=== PATIENT | female | born 1965 | race African-American/Black ===

== ENCOUNTER 2019-06-07 07:12 | Observation (INO) ==
[2019-06-07] MEDS ORDERED: ASPIRIN 325 MG TABLET PO STA (07:37)
[2019-06-07] MEDS ORDERED: KETOROLAC 30 MG/1 ML VIAL IV STA (07:38)
[2019-06-07 08:01] LABS: Basophils % 0.2 % (0.0-0.8); Eosinophils # 0.1 10*3/uL (0.0-0.87); Eosinophils % 1.3 % (0.00-10.9); Hematocrit 42.3 VOL% (35.7-47.0); Hemoglobin 13.2 GM/DL (12.0-16.0); Immature Granulocytes % 0.2 %; Immature Granulocytes Absolute 0.02 #; Lymphocytes # 2.9 10*3/uL (1.4-4.0); Lymphocytes % 34.4 % (21.3-54.2); Mean Corpuscular HGB Conc 31.2 GM/DL (32-36); Mean Corpuscular Volume 82.5 FL (87-102); Mean Platelet Volume 9.3 FL (9.6-12.0); Neutrophils % 57.9 % (38.7-73.9); Platelet Count 326 T/CUMM (130-400); Red Blood Count 5.13 MC/CUMM (3.8-5.5); Red Cell Distribution Width 14.5 % (9.3-17.3); White Blood Count 8.4 T/CUMM (4-12)
[2019-06-07 08:02] LABS: Alanine Aminotransferase 18 U/L (13-56); Albumin 3.5 G/DL (3.4-5.0); Alkaline Phosphatase 121 U/L (45-117); Aspartate Amino Transferase 10 U/L (0-37); Bilirubin,Total < 0.39 MG/DL (0.2-1.0); Blood Urea Nitrogen 9 MG/DL (7-18); Calcium 9.5 MG/DL (8.5-10.1); Estimated Glom Filtration Rate 146 ML/MIN; Glucose 272 MG/DL (74-106); Osmolality,Calculated 274.4 MOS/KG (273-304)
[2019-06-07 08:51] LABS: Barbiturates Screen,Urine Negative (Negative); Benzodiazepines Screen,Urine Negative (Negative); Cannabinoid Screen,Urine Negative (Negative); Opiate Screen,Urine Negative (Negative); Phencyclidine Screen,Urine Negative (Negative)
[2019-06-07] MEDS ORDERED: GLUCAGON 1 MG VIAL IM PRN ×2 (10:18)
[2019-06-07] MEDS ORDERED: DEXTROSE 50% 25 GM/50 ML VIAL IV PRN ×2 (10:18)
[2019-06-07 10:39] VITALS: BP 106/64
[2019-06-07 11:10] LABS: Risk Ratio 3.62; VLDL CHOLESTEROL 16.8 MG/DL
[2019-06-07] MEDS ORDERED: INSULIN REGULAR 100 UNIT/ML SUBCUT SCH (11:30)
[2019-06-07 11:38] LABS: Troponin I < 0.015 NG/ML (0.00-0.045)
[2019-06-07 14:21] LABS: Troponin I < 0.015 NG/ML (0.00-0.045)
[2019-06-07] MEDS ORDERED: GABAPENTIN 100 MG CAPSULE PO ONE (14:53)
[2019-06-07] MEDS ORDERED: KETOROLAC 30 MG/1 ML VIAL IV ONE (14:53)
[2019-06-07] MEDS ORDERED: ATORVASTATIN 20 MG TABLET PO SCH (21:00)
[2019-06-08] MEDS ORDERED: ASPIRIN EC 81 MG TABLET PO SCH (09:00)
== END 2019-06-07 16:15 | disposition home or self-care (01) ==
LOC: N.ED 07:12 → N.EDINP 07:12 → N.2W 11:23
PROVIDERS: ADMIT Family Medicine; ATTEND Family Medicine

== ENCOUNTER 2019-06-30 01:10 | Inpatient (IN) ==
[2019-06-30] MEDS ORDERED: ALUM/MAG/SIMETH/LIDO VISC 1:1 30 ML BOTTLE PO STA (02:19)
[2019-06-30] MEDS ORDERED: ONDANSETRON 4 MG/2 ML VIAL IV STA (02:19)
[2019-06-30] MEDS ORDERED: SODIUM CHLORIDE 0.9% 500 ML IV STA (02:19)
[2019-06-30] MEDS ORDERED: PANTOPRAZOLE 40 MG VIAL IV STA (02:19)
[2019-06-30] MEDS ORDERED: HYDROmorphone 2 MG/1 ML VIAL IV STA (02:19)
[2019-06-30] MEDS ORDERED: KETOROLAC 30 MG/1 ML VIAL IV STA (02:19)
[2019-06-30 02:30] LABS: Basophils # 0.1 10*3/uL (0.0-0.2); Eosinophils # 0.1 10*3/uL (0.0-0.87); Hematocrit 44.3 VOL% (35.7-47.0); Hemoglobin 13.7 GM/DL (12.0-16.0); Immature Granulocytes % 0.8 %; Immature Granulocytes Absolute 0.05 #; Lymphocytes # 2.5 10*3/uL (1.4-4.0); Lymphocytes % 41.1 % (21.3-54.2); Mean Corpuscular HGB Conc 30.9 GM/DL (32-36); Mean Corpuscular Volume 81.7 FL (87-102); Mean Platelet Volume 9.1 FL (9.6-12.0); Monocytes % 14.4 % (1.7-12.7); Neutrophils % 41.7 % (38.7-73.9); Platelet Count 354 T/CUMM (130-400); Red Blood Count 5.42 MC/CUMM (3.8-5.5); Red Cell Distribution Width 14.6 % (9.3-17.3)
[2019-06-30 02:47] LABS: Albumin 3.5 G/DL (3.4-5.0); Bilirubin,Total 0.6 MG/DL (0.2-1.0); Calcium 9.6 MG/DL (8.5-10.1); Total Protein 8.9 G/DL (6.4-8.3)
[2019-06-30 02:54] LABS: Hypochromasia 1+; Lymphocytes 35 % (20-55); Microcytosis 1+; Nucleated Red Blood Cells 1 (0-5); Platelet Estimate Normal; Segmented Neutrophils 53 % (50-85); Total Cells Counted 100
[2019-06-30 02:55] LABS: Polychromasia Slight
[2019-06-30 03:13] LABS: Apearance,Urine CLOUDY (Clear); Bacteria,Urine Few /HPF (Few); Bilirubin,Urine Negative (Negative); Blood, Urine Large mg/dL (Negative); Glucose,Urine (UA) 150 mg/dL (Negative); Ketones,Urine 5 mg/dL (Negative); Mucus,Urine Moderate /LPF (Occasional); Nitrite,Urine Negative (Negative); Protein,Urine 100 MG/DL; RBC,Urine 42 /HPF (0-4); Squamous Epithelial Cell,Urine Occasional /HPF (0-10); Urine Color Amber (Yellow); Urine Specific Gravity 1.021 (1.001-1.035); WBC,Urine 403 /HPF (0-6)
[2019-06-30] MEDS ORDERED: cefTRIAXone 1,000 MG in SODIUM CHLORIDE 0.9% 100 ML IV STA (03:18)
[2019-06-30] MEDS ORDERED: POTASSIUM CHLORIDE 20 MEQ TABLET PO STA (03:18)
[2019-06-30] MEDS ORDERED: PIPERACILLIN/TAZOBACTAM 3,375 MG in SODIUM CHLORIDE 0.9% 100 ML IV STA (03:29)
[2019-06-30] MEDS ORDERED: POTASSIUM BICARB EFFERVESCENT 25 MEQ TABLET PO ONE ×2 (03:37→03:38)
[2019-06-30] MEDS ORDERED: GLUCAGON 1 MG VIAL IM PRN (04:47)
[2019-06-30] MEDS ORDERED: DEXTROSE 50% 25 GM/50 ML VIAL IV PRN (04:47)
[2019-06-30] MEDS ORDERED: HYDROmorphone 2 MG/1 ML VIAL IV PRN ×2 (04:47→15:43)
[2019-06-30] MEDS: INSULIN REGULAR 100 UNIT/ML SUBCUT SCH ×3 (05:44→18:05)
[2019-06-30] MEDS: ONDANSETRON 4 MG/2 ML VIAL IV PRN ×3 (05:49→20:59)
[2019-06-30] MEDS: SODIUM CHLORIDE 0.9% 1,000 ML IV SCH ×2 (05:50→18:29)
[2019-06-30] MEDS ORDERED: ceFAZolin 1,000 MG in SYRINGE 1 EACH IV ONE (07:32)
[2019-06-30] MEDS: GABAPENTIN 100 MG CAPSULE PO SCH ×2 (08:45→20:53)
[2019-06-30] MEDS ORDERED: METFORMIN PO SCH (09:00)
[2019-06-30] MEDS ORDERED: ASPIRIN EC 81 MG TABLET PO SCH (09:00)
[2019-06-30] MEDS ORDERED: ERTUGLIFLOZIN PO SCH (09:00)
[2019-06-30] MEDS: PANTOPRAZOLE 40 MG VIAL IV SCH (09:36)
[2019-06-30] MEDS: PIPERACILLIN/TAZOBACTAM 3,375 MG in SODIUM CHLORIDE 0.9% 100 ML IV SCH ×2 (11:52→20:53)
[2019-06-30] MEDS ORDERED: TISSUE ADHESIVE 1 EACH APPLICATOR TOP ONE (15:11)
[2019-06-30] MEDS ORDERED: LABETALOL 100 MG/20 ML VIAL IV ONE (15:37)
[2019-06-30] MEDS ORDERED: propofoL 200 MG/20 ML VIAL IV ONE (15:37)
[2019-06-30] MEDS ORDERED: GLYCOPYRROLATE 0.4 MG/2 ML VIAL ONE (15:37)
[2019-06-30] MEDS ORDERED: ONDANSETRON 4 MG/2 ML VIAL ONE (15:37)
[2019-06-30] MEDS ORDERED: KETOROLAC 30 MG/1 ML VIAL ONE (15:37)
[2019-06-30] MEDS ORDERED: fentaNYL 100 MCG/2 ML VIAL ONE (15:37)
[2019-06-30] MEDS ORDERED: MIDAZOLAM 2 MG/2 ML VIAL ONE (15:37)
[2019-06-30] MEDS ORDERED: LIDOCAINE 2% 5 ML VIAL ONE (15:37)
[2019-06-30] MEDS ORDERED: SUCCINYLCHOLINE 200 MG/10 ML VIAL ONE (15:38)
[2019-06-30] MEDS ORDERED: SEVOFLURANE 1 UNIT/15 MINUTE INH ONE (15:38)
[2019-06-30] MEDS ORDERED: NEOSTIGMINE 10 MG/10 ML VIAL ONE (15:38)
[2019-06-30] MEDS ORDERED: ROCURONIUM 100 MG/10 ML VIAL IV ONE (15:38)
[2019-06-30] MEDS ORDERED: LACTATED RINGERS 1,000 ML IV ONE (15:38)
[2019-06-30] MEDS ORDERED: ONDANSETRON 4 MG/2 ML VIAL IV PRN (15:43)
[2019-06-30] MEDS: ATORVASTATIN 20 MG TABLET PO SCH (20:53)
[2019-07-01] MEDS: INSULIN REGULAR 100 UNIT/ML SUBCUT SCH ×4 (00:22→18:24)
[2019-07-01] MEDS: ACETAMINOPHEN 325 MG TABLET PO PRN ×2 (02:10→09:14)
[2019-07-01 03:38] LABS: Apearance,Urine CLOUDY (Clear); Bilirubin,Urine Negative (Negative); Blood, Urine Moderate mg/dL (Negative); Glucose,Urine (UA) 150 mg/dL (Negative); Ketones,Urine Negative (Negative); Mucus,Urine Occasional /LPF (Occasional); Nitrite,Urine Negative (Negative); Protein,Urine Negative; RBC,Urine 27 /HPF (0-4); Squamous Epithelial Cell,Urine Occasional /HPF (0-10); Urine Color Amber (Yellow); Urine Specific Gravity 1.021 (1.001-1.035); WBC,Urine 164 /HPF (0-6)
[2019-07-01] MEDS: PIPERACILLIN/TAZOBACTAM 3,375 MG in SODIUM CHLORIDE 0.9% 100 ML IV SCH ×3 (04:22→20:08)
[2019-07-01] MEDS: SODIUM CHLORIDE 0.9% 1,000 ML IV SCH ×3 (05:37→13:08)
[2019-07-01 05:42] LABS: Basophils % 0.4 % (0.0-0.8); Eosinophils % 0.5 % (0.00-10.9); Hemoglobin 11.1 GM/DL (12.0-16.0); Immature Granulocytes % 0.5 %; Immature Granulocytes Absolute 0.04 #; Lymphocytes # 2.8 10*3/uL (1.4-4.0); Lymphocytes % 34.3 % (21.3-54.2); Mean Corpuscular HGB Conc 31.7 GM/DL (32-36); Mean Corpuscular Volume 80.6 FL (87-102); Mean Platelet Volume 9.3 FL (9.6-12.0); Monocytes % 10.9 % (1.7-12.7); Neutrophils % 53.4 % (38.7-73.9); Platelet Count 302 T/CUMM (130-400); Red Blood Count 4.34 MC/CUMM (3.8-5.5); Red Cell Distribution Width 14.8 % (9.3-17.3); White Blood Count 8.2 T/CUMM (4-12)
[2019-07-01 06:06] LABS: Hypochromasia 1+; Microcytosis 1+
[2019-07-01 06:07] LABS: Ovalocytes Slight; Platelet Estimate Normal
[2019-07-01 06:17] LABS: Albumin 2.6 G/DL (3.4-5.0); Bilirubin,Total 0.9 MG/DL (0.2-1.0); Calcium 8.5 MG/DL (8.5-10.1); Osmolality,Calculated 286.1 MOS/KG (273-304); Total Protein 6.7 G/DL (6.4-8.3)
[2019-07-01] MEDS ORDERED: VANCOMYCIN INJ 1,750 MG in SODIUM CHLORIDE 0.9% 500 ML IV ONE (09:00)
[2019-07-01] MEDS: PANTOPRAZOLE 40 MG VIAL IV SCH (09:15)
[2019-07-01] MEDS: GABAPENTIN 100 MG CAPSULE PO SCH ×2 (09:15→20:11)
[2019-07-01] MEDS: ONDANSETRON 4 MG/2 ML VIAL IV PRN (15:08)
[2019-07-01] MEDS: PROMETHAZINE 25 MG/1 ML VIAL IM PRN (19:11)
[2019-07-01] MEDS: VANCOMYCIN INJ 1,250 MG in SODIUM CHLORIDE 0.9% 250 ML IV SCH (20:08)
[2019-07-01] MEDS: ATORVASTATIN 20 MG TABLET PO SCH (20:11)
[2019-07-02] MEDS: PROMETHAZINE 25 MG/1 ML VIAL IM PRN (00:49)
[2019-07-02] MEDS: INSULIN REGULAR 100 UNIT/ML SUBCUT SCH ×4 (00:52→17:00)
[2019-07-02] MEDS: SODIUM CHLORIDE 0.9% 1,000 ML IV SCH ×4 (01:02→13:02)
[2019-07-02] MEDS: PIPERACILLIN/TAZOBACTAM 3,375 MG in SODIUM CHLORIDE 0.9% 100 ML IV SCH ×3 (04:57→20:15)
[2019-07-02 06:23] LABS: Basophils % 0.3 % (0.0-0.8); Eosinophils % 0.2 % (0.00-10.9); Hematocrit 36.4 VOL% (35.7-47.0); Immature Granulocytes % 0.8 %; Immature Granulocytes Absolute 0.09 #; Lymphocytes # 3.1 10*3/uL (1.4-4.0); Lymphocytes % 26.3 % (21.3-54.2); Mean Corpuscular HGB Conc 30.2 GM/DL (32-36); Mean Corpuscular Volume 82.9 FL (87-102); Mean Platelet Volume 9.3 FL (9.6-12.0); Monocytes % 10.9 % (1.7-12.7); Neutrophils % 61.5 % (38.7-73.9); Platelet Count 315 T/CUMM (130-400); Red Blood Count 4.39 MC/CUMM (3.8-5.5); Red Cell Distribution Width 15.1 % (9.3-17.3); White Blood Count 11.9 T/CUMM (4-12)
[2019-07-02 06:44] LABS: Hypochromasia 1+; Platelet Estimate Adequate
[2019-07-02 06:45] LABS: Microcytosis Slight
[2019-07-02 06:50] LABS: Albumin 2.6 G/DL (3.4-5.0); Bilirubin,Total 0.8 MG/DL (0.2-1.0); Calcium 8.5 MG/DL (8.5-10.1); Osmolality,Calculated 283.3 MOS/KG (273-304); Total Protein 6.5 G/DL (6.4-8.3)
[2019-07-02] MEDS: PANTOPRAZOLE 40 MG VIAL IV SCH (09:15)
[2019-07-02] MEDS: GABAPENTIN 100 MG CAPSULE PO SCH ×2 (09:15→20:15)
[2019-07-02] MEDS: ACETAMINOPHEN 325 MG TABLET PO PRN (09:15)
[2019-07-02] MEDS: VANCOMYCIN INJ 1,250 MG in SODIUM CHLORIDE 0.9% 250 ML IV SCH (09:16)
[2019-07-02 14:38] LABS: Hepatitis B Core IgM Quant < 0.05 Index; Hepatitis B Surface Ag Quant < 0.10 Index; Hepatitis B Surface Ag Result Negative (Negative); Hepatitis C Virus Ab Quant 0.05 Index; Hepatitis C Virus Ab Result Negative (Negative)
[2019-07-02] MEDS ORDERED: POTASSIUM CHLORIDE 20 MEQ TABLET PO ONE (14:39)
[2019-07-02] MEDS: LEVOFLOXACIN INJ 500 MG in PREMIX 1 EACH IV SCH (16:59)
[2019-07-02] MEDS: ATORVASTATIN 20 MG TABLET PO SCH (20:15)
[2019-07-03] MEDS: INSULIN REGULAR 100 UNIT/ML SUBCUT SCH ×4 (00:16→18:19)
[2019-07-03] MEDS: ACETAMINOPHEN 325 MG TABLET PO PRN (00:17)
[2019-07-03] MEDS: SODIUM CHLORIDE 0.9% 1,000 ML IV SCH ×3 (06:52→12:00)
[2019-07-03] MEDS: PIPERACILLIN/TAZOBACTAM 3,375 MG in SODIUM CHLORIDE 0.9% 100 ML IV SCH ×3 (06:53→20:35)
[2019-07-03 07:09] LABS: Basophils # 0.1 10*3/uL (0.0-0.2); Basophils % 0.5 % (0.0-0.8); Eosinophils # 0.1 10*3/uL (0.0-0.87); Eosinophils % 0.7 % (0.00-10.9); Hematocrit 34.5 VOL% (35.7-47.0); Hemoglobin 10.8 GM/DL (12.0-16.0); Immature Granulocytes % 0.5 %; Immature Granulocytes Absolute 0.05 #; Lymphocytes # 2.8 10*3/uL (1.4-4.0); Lymphocytes % 27.5 % (21.3-54.2); Mean Corpuscular HGB Conc 31.3 GM/DL (32-36); Mean Corpuscular Volume 81.6 FL (87-102); Mean Platelet Volume 8.7 FL (9.6-12.0); Monocytes % 12.5 % (1.7-12.7); Neutrophils % 58.3 % (38.7-73.9); Platelet Count 281 T/CUMM (130-400); Red Blood Count 4.23 MC/CUMM (3.8-5.5); Red Cell Distribution Width 15.4 % (9.3-17.3)
[2019-07-03 07:43] LABS: Albumin 2.2 G/DL (3.4-5.0); Bilirubin,Total 0.6 MG/DL (0.2-1.0); Calcium 8.8 MG/DL (8.5-10.1); Osmolality,Calculated 287.3 MOS/KG (273-304); Total Protein 7.1 G/DL (6.4-8.3)
[2019-07-03 07:47] LABS: Hypochromasia 1+; Microcytosis 1+; Ovalocytes Slight
[2019-07-03] MEDS: PANTOPRAZOLE 40 MG VIAL IV SCH (08:37)
[2019-07-03] MEDS: GABAPENTIN 100 MG CAPSULE PO SCH ×2 (08:37→20:36)
[2019-07-03] MEDS: ACETAMINOPHEN 325 MG TABLET PO SCH ×3 (11:59→22:42)
[2019-07-03] MEDS ORDERED: ALBUTEROL/IPRATROPIUM 3 ML NEB RESP TX PRN (14:32)
[2019-07-03] MEDS ORDERED: FUROSEMIDE 20 MG/2 ML VIAL IV ONE (14:33)
[2019-07-03] MEDS: LEVOFLOXACIN INJ 500 MG in PREMIX 1 EACH IV SCH (16:02)
[2019-07-03] MEDS: ATORVASTATIN 20 MG TABLET PO SCH (20:35)
[2019-07-03] MEDS: ZINC SULFATE 220 MG CAPSULE PO SCH (20:36)
[2019-07-04] MEDS: INSULIN REGULAR 100 UNIT/ML SUBCUT SCH ×5 (00:54→21:09)
[2019-07-04] MEDS: PIPERACILLIN/TAZOBACTAM 3,375 MG in SODIUM CHLORIDE 0.9% 100 ML IV SCH ×3 (04:50→21:08)
[2019-07-04] MEDS: ACETAMINOPHEN 325 MG TABLET PO SCH ×4 (04:51→23:57)
[2019-07-04 07:54] LABS: Basophils % 0.5 % (0.0-0.8); Eosinophils # 0.1 10*3/uL (0.0-0.87); Eosinophils % 1.1 % (0.00-10.9); Hematocrit 32.3 VOL% (35.7-47.0); Hemoglobin 10.4 GM/DL (12.0-16.0); Immature Granulocytes % 0.5 %; Immature Granulocytes Absolute 0.04 #; Lymphocytes # 2.8 10*3/uL (1.4-4.0); Mean Corpuscular HGB Conc 32.2 GM/DL (32-36); Mean Corpuscular Volume 82.6 FL (87-102); Mean Platelet Volume 9.4 FL (9.6-12.0); Monocytes % 12.5 % (1.7-12.7); Neutrophils % 52.4 % (38.7-73.9); Platelet Count 281 T/CUMM (130-400); Red Blood Count 3.91 MC/CUMM (3.8-5.5); Red Cell Distribution Width 15.3 % (9.3-17.3); White Blood Count 8.4 T/CUMM (4-12)
[2019-07-04 07:56] LABS: Bilirubin,Total 0.4 MG/DL (0.2-1.0); Calcium 8.6 MG/DL (8.5-10.1); Osmolality,Calculated 281.7 MOS/KG (273-304); Total Protein 6.9 G/DL (6.4-8.3)
[2019-07-04 08:22] LABS: Atypical Lymphocytes Few; Band Neutrophils 3 % (0-10); Eosinophils 1 % (0-10); Hypochromasia 1+; Lymphocytes 26 % (20-55); Metamyelocytes 1 %; Microcytosis 1+; Segmented Neutrophils 60 % (50-85); Total Cells Counted 100
[2019-07-04 08:23] LABS: Platelet Estimate Normal
[2019-07-04] MEDS: FUROSEMIDE 40 MG/4 ML VIAL IV SCH (09:16)
[2019-07-04] MEDS: GABAPENTIN 100 MG CAPSULE PO SCH ×2 (09:16→21:09)
[2019-07-04] MEDS: SODIUM CHLORIDE 0.9% 1,000 ML IV SCH ×2 (09:16→09:17)
[2019-07-04] MEDS: PANTOPRAZOLE 40 MG VIAL IV SCH (09:17)
[2019-07-04] MEDS ORDERED: POTASSIUM CHLORIDE 20 MEQ TABLET PO PRN (09:45)
[2019-07-04] MEDS ORDERED: MAGNESIUM SULF RIDER 2 GM in PREMIX 1 EACH IV ONE (10:47)
[2019-07-04 11:43] LABS: ABG Base Excess 3.8 MMOL/L (-2.5-2.5); ABG HCO3 27.7 MMOL/L (20-26); ABG Oxygen Saturation 93.9 % (95-100); ABG PCO2 36.7 MM HG (35-48); ABG PH 7.479 (7.35-7.45); ABG PO2 64.4 MM HG (80-95); ABG TCO2 23.9 MMOL/L (23-27)
[2019-07-04] MEDS: SIMETHICONE CHEW 125 MG TABLET PO SCH ×3 (13:00→21:09)
[2019-07-04] MEDS: LEVOFLOXACIN INJ 500 MG in PREMIX 1 EACH IV SCH (17:58)
[2019-07-04] MEDS: ZINC SULFATE 220 MG CAPSULE PO SCH (21:09)
[2019-07-04] MEDS: ATORVASTATIN 20 MG TABLET PO SCH (21:09)
[2019-07-04] MEDS: ONDANSETRON 4 MG/2 ML VIAL IV PRN (21:22)
[2019-07-05 04:38] LABS: HIV Antigen/Antibody Result Reactive (Nonreactive)
[2019-07-05 04:41] LABS: Basophils % 0.5 % (0.0-0.8); Eosinophils # 0.1 10*3/uL (0.0-0.87); Eosinophils % 0.6 % (0.00-10.9); Hematocrit 33.5 VOL% (35.7-47.0); Hemoglobin 10.9 GM/DL (12.0-16.0); Immature Granulocytes % 0.3 %; Immature Granulocytes Absolute 0.02 #; Mean Corpuscular HGB Conc 32.5 GM/DL (32-36); Mean Corpuscular Volume 79.8 FL (87-102); Mean Platelet Volume 9.1 FL (9.6-12.0); Monocytes % 13.2 % (1.7-12.7); Neutrophils % 46.4 % (38.7-73.9); Platelet Count 289 T/CUMM (130-400); Red Cell Distribution Width 15.1 % (9.3-17.3); White Blood Count 7.7 T/CUMM (4-12)
[2019-07-05] MEDS: PIPERACILLIN/TAZOBACTAM 3,375 MG in SODIUM CHLORIDE 0.9% 100 ML IV SCH ×2 (04:46→13:40)
[2019-07-05] MEDS: ACETAMINOPHEN 325 MG TABLET PO SCH ×2 (04:47→12:27)
[2019-07-05 05:00] LABS: Hypochromasia 1+; Microcytosis 1+; Platelet Estimate Adequate
[2019-07-05 05:08] LABS: Albumin 2.2 G/DL (3.4-5.0); Bilirubin,Total 0.7 MG/DL (0.2-1.0); Calcium 8.7 MG/DL (8.5-10.1); Osmolality,Calculated 286.4 MOS/KG (273-304); Total Protein 7.4 G/DL (6.4-8.3)
[2019-07-05] MEDS: INSULIN REGULAR 100 UNIT/ML SUBCUT SCH ×2 (09:52→12:28)
[2019-07-05] MEDS: SIMETHICONE CHEW 125 MG TABLET PO SCH ×2 (09:53→15:55)
[2019-07-05] MEDS: FUROSEMIDE 40 MG/4 ML VIAL IV SCH (09:53)
[2019-07-05] MEDS: PANTOPRAZOLE 40 MG VIAL IV SCH (09:53)
[2019-07-05] MEDS: GABAPENTIN 100 MG CAPSULE PO SCH (09:53)
[2019-07-05] MEDS ORDERED: POTASSIUM CHLORIDE INJ 50 MEQ in SODIUM CHLORIDE 0.9% 500 ML IV ONE (10:00)
[2019-07-05] MEDS: LEVOFLOXACIN INJ 500 MG in PREMIX 1 EACH IV SCH (12:27)
[2019-07-05 16:18] VITALS: BP 136/84
== END 2019-07-05 17:22 | disposition home or self-care (01) | DRG 417 ==
LOC: N.EDINP 01:10 → N.ED 01:10 → N.EDINP 04:43 → N.3E 04:45 → N.2E 07-02 21:38
PROVIDERS: ADMIT Student in an Organized Health Care Education/Training Program; ATTEND Student in an Organized Health Care Education/Training Program
PROC: LAPCHOL (2019-06-30 13:37)